=== PATIENT | male | born 1960 | race Caucasian/White ===

== ENCOUNTER → 2020-12-07 | Outpatient (CLI) | payer OTHER ==
[~2020-12-07] MED LIST: CYCLOBENZAPRINE10 MG PO; ECOTRIN81 MG PO; LIPITOR TAB 1010 MG PO; NORVASC10 MG PO; VOLTAREN EC 7575 MG PO; ZANTAC150 MG PO
[2020-12-07 07:56] LABS: HEMOGLOBIN 17.2 gm/dl (14.0-17.5); RED BLOOD COUNT 5.24 M/UL (4.20-5.50); WHITE BLOOD COUNT 5.5 K/UL (4.5-11.0)
[2020-12-07 08:29] LABS: BUN/CREATININE RATIO 18 (0-10)
[2020-12-08 08:15] LABS: VITAMIN D, 25-HYDROXY 17.4 ng/mL (30.0-100.0)
[2020-12-08 13:10] LABS: THYROXINE (T4) 5.5 ug/dL (4.5-12.0)
== END ==
LOC: LAB 07:26
PROVIDERS: Nurse Practitioner Family
DX: M54.2 Cervicalgia (principal); R53.83 Other fatigue; Z13.9 Encounter for screening, unspecified; M47.812 Spondylosis without myelopathy or radiculopathy, cervical region
CPT/HCPCS: 36415; 72050; 80053; 80061; 84153; 84436; 84443; 84480; 85025

== ENCOUNTER → 2020-12-28 | Outpatient (CLI) | payer OTHER | LOC: RAD 09:07 | DX: M54.5 Low back pain (principal); M25.552 Pain in left hip; W19.XXXA Unspecified fall, initial encounter; M47.817 Spondylosis without myelopathy or radiculopathy, lumbosacral region | CPT/HCPCS: 72110; 72170 ==

== ENCOUNTER → 2022-02-13 | Outpatient (CLI) | payer OTHER | LOC: KOH-I 16:38 | DX: M25.511 Pain in right shoulder (principal) | CPT/HCPCS: 73030 ==